=== PATIENT | female | born 1990 | race Two or more races ===

== ENCOUNTER 2019-05-26 03:10 | Inpatient (IN) | payer OTHER ==
[~2019-05-26] VITALS: Ht 160 cm; Wt 3.2 kg
[2019-05-26] MEDS ORDERED: OBSTETRIX DHA1 EACH PO (10:51)
[2019-05-29] MEDS ORDERED: CODE1TAB37 PO (09:08)
[2019-05-29] MEDS ORDERED: IBUPROFEN600 MG PO (09:08)
[2019-05-29] MEDS ORDERED: COLACE100 MG PO (09:09)
== END 2019-05-29 12:25 | disposition home or self-care (01) | DRG 788 ==
LOC: OBS/DEL 03:10 → LDR 08:27 → OB/GYN 08:27 → O/R 10:07 → OB/GYN 11:35
PROVIDERS: ADMIT Obstetrics & Gynecology
PROC: 3E033VJ Introduction of Other Hormone into Peripheral Vein, Percutaneous Approach (ICD-10-PCS; 2019-05-26)
PROC: 4A1HXCZ Monitoring of Products of Conception, Cardiac Rate, External Approach (ICD-10-PCS; 2019-05-26)
PROC: 10D00Z1 Extraction of Products of Conception, Low, Open Approach (ICD-10-PCS; principal; 2019-05-26 11:00)
DX: O82 Encounter for cesarean delivery without indication (principal); O76 Abnormality in fetal heart rate and rhythm complicating labor and delivery; Z3A.40 40 weeks gestation of pregnancy; Z37.0 Single live birth

== ENCOUNTER → 2019-05-26 | Emergency (ER) | payer OTHER ==
[~2019-05-26] MED LIST: CODE1TAB37 PO; COLACE100 MG PO; IBUPROFEN600 MG PO; OBSTETRIX DHA1 EACH PO
== END | disposition left against medical advice (07) ==
LOC: ER 00:51
DX: Z53.20 Procedure and treatment not carried out because of patient's decision for unspecified reasons (principal)